=== PATIENT | male | born 1985 | race Caucasian/White ===

== ENCOUNTER → 2024-08-13 15:16 | Outpatient (BNVA) | payer OTHER, SELFPAY | PROVIDERS: PCP Family Medicine; Visit Provider Family Medicine | DX: I10 Essential (primary) hypertension (principal) | CPT/HCPCS: 80053 ==

== ENCOUNTER → 2024-09-17 16:09 | Outpatient (BNVA) | payer OTHER, SELFPAY | PROVIDERS: PCP Family Medicine; Visit Provider Family Medicine | DX: I10 Essential (primary) hypertension (principal); R73.9 Hyperglycemia, unspecified | CPT/HCPCS: 80048; 83036 ==

== ENCOUNTER → 2024-10-18 16:02 | Outpatient (BNVA) | payer BC, SELFPAY | PROVIDERS: PCP Family Medicine; Visit Provider Family Medicine | DX: I10 Essential (primary) hypertension (principal); E11.9 Type 2 diabetes mellitus without complications; E55.9 Vitamin D deficiency, unspecified | CPT/HCPCS: 82043 ==

== ENCOUNTER 2024-12-23 18:55 | Emergency (ER) | payer BC, SELFPAY ==
--- OUTSIDE RECORDS SUMMARY | 2024-12-23 18:58 | XMS_ITS | Clinical Summary ---
Author Organization [facility] Address [address] [place] [address] Care Team Providers Care Biomedical Engineering Technologist Name Role Phone CarenRichelle tadeo Malka SCHROEDER Primary Care Provider Allergies No known active allergies Medications GARLIC ORAL Take by mouth daily. Active fluticasone propionate (FLONASE) 50 mcg/spray [place], Suspension nasal inhalerIndication s:Middle ear effusion, bilateral,Subacut e pansinusitis Administer 2 Sprays in each nostril daily. 16 Gram Active Active Problems Problem Noted Date Diagnosed Date Hyperphagia 07/14/2018 Essential hypertension 07/14/2018 Family History Medical History Relation Name Comments Prostate Cancer Father Stroke Father Diabetes Mother Relation Name Status Comments Father Mother Social History Tobacco Use Types Packs/Day Years Used Date Smoking Tobacco: Never Smokeless Tobacco: Former Alcohol Use Standard Drinks/Week Comments No 0 (1 standard drink = 0.6 oz pur e alcohol) Sex and Gender Information Value Date Recorded Sex Assigned at Not on file Legal Sex Male 8:38 AM CDT Gender Identity Not on file Sexual Orientation Not on file Last Filed Vital Signs Vital Sign Reading Time Taken Comments Blood Pressure 130/88 08/18/2020 9:54 AM CDT Pulse 97 08/18/2020 9:54 AM CDT Temperature 36.8 C (98.3 F) 08/18/2020 9:54 AM CDT Respiratory Rate 18 07/14/2018 9:13 AM CDT Oxygen Saturation 98% 08/18/2020 9:54 AM CDT Inhaled Oxygen Concentration - - Weight 144.7 kg (319 lb) 08/18/2020 9:54 AM CDT Height 188 cm (6' 2 ) 08/18/2020 9:54 AM CDT Body Mass Index 40.96 08/18/2020 9:54 AM CDT Plan of Treatment Health Maintenance Due Date Last Done Comments DTAP/TDAP/TD VACCINES (1 - Tdap) 2002 HEPATITIS B VACCINES (1 of 3 - 19+ 3-dose series) 05/03 HPV VACCINES (1 - 3-dose SCDM series) 2010 Preventative Visit- Commercial 05/02/2024 INFLUENZA VACCINE (#1) 2024 08/18/2020 Insurance [employer] PLUS Care Teams Biomedical Engineering Technologist Relationship Specialty Start Date End Date Richelle Fabian DO [address] [id number] PCP - General Family Practice 07/14/18
--- OUTSIDE RECORDS SUMMARY | 2024-12-23 18:58 | XMS_ITS | Clinical Summary ---
Author Organization [facility] Address [address] [place] [address] Care Team Providers Care Green Building Materials Designer Name Role Phone CarenRichelle Malka SCHROEDER Primary Care Provider [phone] Allergies No known active allergies Medications fluticasone propionate (FLONASE) 50 mcg/spray [place], Suspension nasal inhalerIndicati ons:Subacute pansinusitis,Mi ddle ear effusion, bilateral Administer 2 Sprays in each nostril daily. 16 Gram 0 1 Active GARLIC ORAL Take by mouth daily. 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 Gender Identity Not on file Sexual Orientation Not on file Last Filed Vital Signs Vital Sign Reading Time Taken Comments Blood Pressure 130/88 08/18/2020 9:54 AM CDT Pulse 97 08/18/2020 9:54 AM CDT Temperature 36.8 C (98.3 F) 08/18/2020 9:54 AM CDT Respiratory Rate 18 07/14/2018 9:13 AM CDT Oxygen Saturation - - Inhaled Oxygen Concentration - - Weight 144.7 kg (319 lb) 08/18/2020 9:54 AM CDT Height 188 cm (6' 2 ) 08/18/2020 9:54 AM CDT Body Mass Index 40.96 08/18/2020 9:54 AM CDT Plan of Treatment Health Maintenance Due Date Last Done Comments HPV VACCINES (1 - Male 3-dose series) 1998 DTAP/TDAP/TD VACCINES (1 - Tdap) 2002 HEPATITIS B VACCINES (1 of 3 - 19+ 3-dose series) 05/03 INFLUENZA VACCINE (#1) 2024 08/18/2020 Care Teams Green Building Materials Designer Relationship Specialty Start Date End Date Richelle Fabian DO [address] [place] [id number] PCP - General Family Practice 07/14/18
[2024-12-23 19:00] VITALS: BP 145/99; PULSE 107; RESP 14; TEMP 36.8; O2SAT 100
--- NOTE | 2024-12-23 19:20 | W.ED.BACK ---
HPI - Back Pain/Injury General: Chief Complaint: Back Pain/Injury Stated Complaint: Fell Time Seen by Provider: 12/23/24 19:01 History of Present Illness: Patient presents with excruciating pain in the center of the lower back following a slip and fall incident at [facility]. The fall occurred at approximately 4:30 PM when the patient slipped on a concrete floor. Patient reports hitting their head during the fall and initially feeling only hip bruising, but later developed significant back pain. Patient rates pain as severe but did not specify a numerical value. Pain is exacerbated by breathing, talking, and certain movements. Patient took one Tylenol for pain relief with minimal effect. Patient mentions a history of sciatic nerve issues and a previous knee injury, but states the current pain feels different. No radiation of pain reported. No other injuries or symptoms mentioned. Related Data Previous Rx's ?Medication ?Instructions ?Recorded tirzepatide 5 mg/0.5 mL 5 mg (0.5 mL) SUBCUT .qwk #2 mL 10/18/24 subcutaneous pen injector (Mounjaro) chlorthalidone 25 mg tablet 25 mg PO DAILY #90 tabs 12/06/24 losartan 100 mg tablet 100 mg PO DAILY #90 tabs 12/06/24 tirzepatide 7.5 mg/0.5 mL 7.5 mg (0.5 mL) SUBCUT .qwk #2 mL 12/06/24 subcutaneous pen injector (Mounjaro) cyclobenzaprine 10 mg tablet 10 mg PO Q8H #20 tabs 12/23/24 naproxen 500 mg tablet (Naprosyn) 500 mg PO BID #20 tabs 12/23/24 Allergies Allergy/AdvReac Type Severity Reaction Status Date / Time venom-honey bee Allergy ALGY-Swell Verified 11/05/24 09:35 Lip/Tongue/Throat Review of Systems General: Reports: 10 or more systems reviewed and unremarkable except in HPI and below PFSH ED PFSH: Medical History (Updated 12/23/24 @ 21:59 by Marcio Gomez DO) Diabetes type 2 dxed 09.17.24 Obesity (BMI 30.0-34.9) Hyperglycemia Nicotine dependence, chewing tobacco, uncomplicated Snoring HTN (hypertension) with goal to be determined Family History Father Scoliosis Heart attack Stroke Atherosclerosis Prostate cancer Mother Renal disease Diabetes mellitus, type 2 Hypertension Social History Smoking and tobacco/nicotine status: never used tobacco/nicotine Alcohol intake: never Substance/Drug Use: never Household members: spouse Marital status: Number of children: 0 Highest education level completed: GED or Equivalent Current occupational status: employed Current occupation: [employer]--[employer] Physical Exam Const: COMMON NORMALS: no acute distress, patient oriented x3, alert and well nourished HENMT: COMMON NORMALS: normocephalic HEAD & SCALP: normocephalic Eye: COMMON NORMALS: Equal, round and reactive pupils present, EOMs intact bilaterally and conjunctivae normal CONJUNCTIVA: Yes conjunctivae normal PUPIL: Yes Equal, round and reactive pupils present Neck/C-Spine: COMMON NORMALS: full ROM, no lymphadenopathy, supple, no meningeal signs, no JVD and Thyroid normal THYROID: Thyroid normal Chest: COMMONS NORMALS: normal inspection of the chest and normal palpation of entire chest wall Resp: COMMON NORMALS: normal respiratory effort, No retractions, No use of accessory muscles, clear to auscultation bilaterally and percussion normal AUSCULTATION: clear to auscultation bilaterally PERCUSSION: percussion normal Cardio: COMMON NORMALS: no JVD : COMMON NORMALS: Yes no CVA tenderness BLADDER/KIDNEY EXAM: Yes no CVA tenderness Back/Pelvis: COMMON NORMALS: no CVA tenderness Extremity: COMMON NORMALS: normal to inspection, full ROM, capillary refill normal, no joint enlargement, no clubbing, cyanosis or edema, no calf tenderness and no pedal edema Neuro: COMMON NORMALS: patient oriented x3 SENSORIUM/ORIENTATION: Yes alert MENINGEAL SIGNS: Yes no meningeal signs Skin: COMMON NORMALS: no rashes or lesions noted, turgor normal and no jaundice GENERAL SKIN EXAM: no rashes or lesions noted and turgor normal Course Vital Signs: Vital signs: Vital Signs Temperature 98.2 F 12/23/24 19:00 Pulse Rate 107 H 12/23/24 19:00 Respiratory Rate 14 12/23/24 19:00 Blood Pressure 145/99 12/23/24 19:00 Pulse Oximetry 100 12/23/24 19:00 Oxygen Delivery Me thod Room Air 12/23/24 19:00 MDM - Back Pain/Injury Medical Decision Making 1. Acute Lower Back Pain Secondary to Fall - Likely musculoskeletal strain/contusion of the lower back - Obtain X-ray of lumbar spine to rule out fracture or dislocation - Administer injectable analgesic for immediate pain relief - Consider muscle relaxant if significant muscle spasm present - Follow up on X-ray results 2. Head Injury - Minor - Patient reports hitting head during fall - No loss of consciousness reported - Monitor for signs of concussion or delayed intracranial injury - Provide head injury precautions 3. Hip Contusion - Conservative management with ice, rest - Analgesics as needed 4. History of Sciatic Nerve Issues - Not currently symptomatic per patient - Monitor for exacerbation following current injury X-rays were negative. Reassurance given. Follow-up and discharge precautions and instructions were given. Labs Radiology Impressions Lumbar Spine X-Ray 12/23/24 19:25 IMPRESSION: No lumbar spine compression fracture. Pelvis X-Ray 12/23/24 19:25 IMPRESSION: No acute findings. No radiology studies performed this visit Discharge Plan Discharge Patient Disposition: Home Clinical Impression: Obesity (BMI 30.0-34.9), Strain of lumbar region, Contusion Condition: Stable Prescriptions: New cyclobenzaprine 10 mg tablet 10 mg PO Q8H Qty: 20 0RF naproxen [Naprosyn] 500 mg tablet 500 mg PO BID Qty: 20 0RF No Action Mounjaro 5 mg/0.5 mL pen injector 5 mg SUBCUT .qwk Qty: 2 0RF Mounjaro 7.5 mg/0.5 mL pen injector 7.5 mg SUBCUT .qwk Qty: 2 2RF losartan 100 mg tablet 100 mg PO DAILY Qty: 90 1RF chlorthalidone 25 mg tablet 25 mg PO DAILY Qty: 90 1RF Discharge Orders: Discharge ED (Routine); Ordered 12/23/24 Ordered By: Marcio Gomez Referrals: Elysia Farmer MD [Primary Care Provider, Family Practice] Discharge Diet: Advance as tolerated Discharge Activity: Resume usual activity Patient Instructions: Opioid Safety, Pain Management, Patient Portal & Karime Instructions Activity Restrictions/Additional Instructions: 1. Rest, ice and take Rx as directed. 2. Follow up with PCP for recheck this week. 3. Return to ED for new or worsening symptoms. Print Language: Lithuanian Coding Level of Care Code ED Desizing Machine Operator Head End for Justin Tripathi
--- NOTE | 2024-12-23 19:25 | XRR_ITS ---
PROCEDURE INFORMATION: Exam: XR Lumbosacral Spine Exam date and time: 12/23/2024 7:46 PM Age: 39 years old Clinical indication: C/O low back pain with radiation to rle post ground level fall. ; Additional info: Pain / fall TECHNIQUE: Imaging protocol: Radiologic exam of the lumbosacral spine. Views: 2 or 3 views. COMPARISON: CR XR pelvis 1-2V* [id number] 12/23/2024 7:46 PM FINDINGS: Bones/joints: There are 5 [id number] lumbar-type vertebral bodies. Vertebral body heights are preserved. No scoliosis or spondylolisthesis. Multilevel lumbar spondylosis, pronounced in the lower lumbar spine. Soft tissues: Unremarkable. XR/XR lumbar spine 2-3V* [id number] IMPRESSION: No lumbar spine compression fracture.
--- NOTE | 2024-12-23 19:25 | XRR_ITS ---
PROCEDURE INFORMATION: Exam: XR Pelvis Exam date and time: 12/23/2024 7:46 PM Age: 39 years old Clinical indication: Injury or trauma; Blunt trauma (contusions or hematomas); Right; Hip; C/O low back pain with radiation to rle post ground level fall. ; Additional info: Right hip pain TECHNIQUE: Imaging protocol: Radiologic exam of the pelvis. Views: 1 or 2 view. COMPARISON: CR XR lumbar spine 2-3V* [id number] 12/23/2024 7:46 PM FINDINGS: Bones/joints: Unremarkable. No acute fracture. Soft tissues: Unremarkable. XR/XR pelvis 1-2V* [id number] IMPRESSION: No acute findings.
== END 2024-12-23 21:08 | disposition home or self-care (01) ==
PROVIDERS: Emergency Provider Family Medicine; PCP Family Medicine
DX: S39.012A Strain of muscle, fascia and tendon of lower back, initial encounter (principal); S30.0XXA Contusion of lower back and pelvis, initial encounter; E66.9 Obesity, unspecified; Z68.34 Body mass index [BMI] 34.0-34.9, adult; E11.9 Type 2 diabetes mellitus without complications; I10 Essential (primary) hypertension; W01.0XXA Fall on same level from slipping, tripping and stumbling without subsequent striking against object, initial encounter
CPT/HCPCS: 72100; 72170; 96372; 99284; J1885

== ENCOUNTER → 2025-01-11 16:19 | Outpatient (BNVA) | payer BC, SELFPAY | PROVIDERS: PCP Family Medicine; Visit Provider Family Medicine | DX: E11.65 Type 2 diabetes mellitus with hyperglycemia (principal) | CPT/HCPCS: 83036; 84443 ==

== ENCOUNTER → 2025-04-19 08:56 | Outpatient (BNVA) | payer BC, SELFPAY | PROVIDERS: PCP Family Medicine; Visit Provider Family Medicine | DX: E11.65 Type 2 diabetes mellitus with hyperglycemia (principal); I10 Essential (primary) hypertension | CPT/HCPCS: 80061; 83036 ==